=== PATIENT | female | born 1955 | race Hispanic/Latino ===

== ENCOUNTER 2019-03-18 12:47 | Day surgery (SDC) | payer OTHER ==
[2019-03-18 14:20] VITALS: BP 124/63
[2019-03-18] MEDS ORDERED: ASPI-555 PEG (14:46)
[2019-03-18] MEDS ORDERED: AMLO2.5T4 PEG (14:46)
[2019-03-18] MEDS ORDERED: PARO10TA71 PEG (14:46)
[2019-03-18] MEDS ORDERED: CLOP75TA32 PEG (14:46)
[2019-03-18] MEDS ORDERED: SITA50TA PEG (14:46)
[2019-03-18] MEDS ORDERED: DOXY100C2 PEG (14:46)
[2019-03-18] MEDS ORDERED: LOVA10TA2 PEG (14:46)
[2019-03-18] MEDS ORDERED: GABA-531 PEG (14:46)
[2019-03-18] MEDS ORDERED: METO-408 PEG (14:46)
[2019-03-18] MEDS ORDERED: [UNRECOGNIZED DRUG - CODE] PEG (14:46)
[2019-03-18 15:08] VITALS: BP 113/60
--- NOTE | 2019-03-18 15:08 | NUR ---
PATIENT RETUNED FROM ENDO IN NO DISTRESS. PEG SITE SHOWS NO ACTIVE BLEEDING. PATIENTS SPOUSE IN WITH HER.
[2019-03-18 15:13] VITALS: BP 114/62
[2019-03-18 15:30] VITALS: BP 123/77
[2019-03-18 15:45] VITALS: BP 120/75
--- NOTE | 2019-03-18 15:55 | NUR ---
PATIENT DISCHARGED IN NO DISTRESS, PEG SITE CLEAN AND DRY. PT LEFT VIA EMS WITH SPOUSE IN EMS.
== END 2019-03-18 15:59 | disposition home or self-care (01) ==
LOC: EDH 12:47 → ENDO 13:40
PROVIDERS: ATTEND Internal Medicine Gastroenterology
DX: K21.0 Gastro-esophageal reflux disease with esophagitis (principal); K29.00 Acute gastritis without bleeding; K94.23 Gastrostomy malfunction; E11.9 Type 2 diabetes mellitus without complications; I10 Essential (primary) hypertension; E78.5 Hyperlipidemia, unspecified; Z98.890 Other specified postprocedural states; Z79.899 Other long term (current) drug therapy; Z79.82 Long term (current) use of aspirin; Z87.891 Personal history of nicotine dependence; Z88.0 Allergy status to penicillin; I25.10 Atherosclerotic heart disease of native coronary artery without angina pectoris; Z86.73 Personal history of transient ischemic attack (TIA), and cerebral infarction without residual deficits
CPT/HCPCS: 43246; 82948